=== PATIENT | male | born 1995 | race Caucasian/White ===

== ENCOUNTER 2016-06-22 19:04 | Emergency (ER) | payer MEDICAID ==
[~2016-06-22] VITALS: Ht 172.7 cm; Wt 54.5 kg
[~2016-06-22 19:04] MED LIST: ADVIL200 MG PO; AMBIEN10 MG PO; GABLOFEN0.05 MG/ML IN; LEVAQUIN 5500 MG/TA1 PO; NORCO 325 MG-7.1 TAB PO; PERCOCET 325 MG1 TA2 PO; PHENERGAN 25 TA25 MG PO
[2016-06-22 19:07] VITALS: BP 108/45; TEMP 99
[2016-06-22] MEDS ORDERED: LEXAPRO 10MG10 MG PO (19:09)
[2016-06-22 19:45] VITALS: PULSE 80
== END 2016-06-22 19:46 | disposition home or self-care (01) ==
LOC: COL.ER 19:04
DX: H02.89 Other specified disorders of eyelid (principal)

== ENCOUNTER 2016-09-19 20:49 | Emergency (ER) | payer MEDICAID ==
[~2016-09-19] VITALS: Wt 52.3 kg
[~2016-09-19 20:49] MED LIST changes: +LEXAPRO 10MG10 MG PO
[2016-09-19 20:52] VITALS: BP 136/35; TEMP 98.1
[2016-09-19] MEDS ORDERED: CEPHALEXIN500 M1 PO (21:42)
[2016-09-19 22:55] VITALS: PULSE 70
== END 2016-09-19 22:55 | disposition home or self-care (01) ==
LOC: COL.ER 20:49
DX: L97.429 Non-pressure chronic ulcer of left heel and midfoot with unspecified severity (principal); I87.2 Venous insufficiency (chronic) (peripheral); G80.0 Spastic quadriplegic cerebral palsy
CPT/HCPCS: J0690

== ENCOUNTER 2017-04-27 13:15 | Outpatient (RCR) | payer MEDICAID ==
[~2017-04-27 13:15] MED LIST changes: +CEPHALEXIN500 M1 PO
== END 2017-04-28 ==
LOC: MKS.ESL.PT
DX: G80.8 Other cerebral palsy (principal); Z99.3 Dependence on wheelchair

== ENCOUNTER 2017-07-27 13:15 | Outpatient (RCR) | payer MEDICAID | END 2017-07-30 | disposition home or self-care (01) | LOC: MKS.ESL.PT | DX: G80.9 Cerebral palsy, unspecified (principal) ==

== ENCOUNTER 2017-10-23 14:00 | Outpatient (RCR) | payer MEDICAID | END 2017-10-29 | disposition home or self-care (01) | LOC: MKS.ESL.PT | DX: G80.9 Cerebral palsy, unspecified (principal) ==

== ENCOUNTER 2018-01-25 13:15 | Outpatient (RCR) | payer MEDICAID | END 2018-01-31 | disposition home or self-care (01) | LOC: MKS.ESL.PT | DX: G80.8 Other cerebral palsy (principal) ==

== ENCOUNTER 2018-05-03 13:15 | Outpatient (RCR) | payer MEDICAID | END 2018-05-06 | disposition home or self-care (01) | LOC: MKS.ESL.PT | DX: G80.9 Cerebral palsy, unspecified (principal) ==

== ENCOUNTER → 2018-08-05 | Outpatient (RCR) | payer MEDICAID | END | disposition home or self-care (01) | LOC: MKS.ESL.PT | DX: G80.9 Cerebral palsy, unspecified (principal) ==

== ENCOUNTER 2018-11-09 13:30 | Outpatient (RCR) | payer MEDICAID | END 2018-11-14 | LOC: MKS.ESL.PT | DX: G80.9 Cerebral palsy, unspecified (principal) ==

== ENCOUNTER 2019-02-18 13:15 | Outpatient (RCR) | payer MEDICAID | END 2019-02-20 | disposition home or self-care (01) | LOC: MKS.ESL.PT | DX: G80.9 Cerebral palsy, unspecified (principal) ==

== ENCOUNTER 2019-05-20 13:15 | Outpatient (RCR) | payer MEDICAID | END 2019-05-22 | disposition home or self-care (01) | LOC: MKS.ESL.PT | DX: G80.8 Other cerebral palsy (principal) ==

== ENCOUNTER → 2020-06-04 | Outpatient (RCR) | payer MEDICAID | END | disposition home or self-care (01) | LOC: MKS.ESL.PT | DX: G80.8 Other cerebral palsy (principal) ==

== ENCOUNTER 2020-09-10 10:30 | Outpatient (RCR) | payer MEDICAID | END 2020-09-16 | disposition home or self-care (01) | LOC: MKS.ESL.PT | DX: G80.8 Other cerebral palsy (principal) ==

== ENCOUNTER 2020-12-07 13:15 | Outpatient (RCR) | payer MEDICAID | END 2020-12-16 | disposition home or self-care (01) | LOC: MKS.ESL.PT | DX: G80.8 Other cerebral palsy (principal); L89.90 Pressure ulcer of unspecified site, unspecified stage; Z99.3 Dependence on wheelchair ==

== ENCOUNTER 2021-03-15 13:15 | Outpatient (RCR) | payer MEDICAID | END 2021-03-21 | disposition home or self-care (01) | LOC: MKS.ESL.PT | DX: G80.9 Cerebral palsy, unspecified (principal); L89.90 Pressure ulcer of unspecified site, unspecified stage; M24.50 Contracture, unspecified joint ==

== ENCOUNTER 2021-05-29 14:00 | Outpatient (RCR) | payer MEDICAID | END 2021-05-31 | disposition home or self-care (01) | LOC: MKS.ESL.PT | DX: G80.9 Cerebral palsy, unspecified (principal); L89.90 Pressure ulcer of unspecified site, unspecified stage ==

== ENCOUNTER 2021-07-26 13:15 | Outpatient (RCR) | payer MEDICAID | END 2021-07-29 | disposition home or self-care (01) | LOC: MKS.ESL.PT | DX: G80.8 Other cerebral palsy (principal); L89.90 Pressure ulcer of unspecified site, unspecified stage; M24.50 Contracture, unspecified joint; R25.2 Cramp and spasm ==

== ENCOUNTER 2021-08-23 13:15 | Outpatient (RCR) | payer MEDICAID | END 2021-08-29 | disposition home or self-care (01) | LOC: MKS.ESL.PT | DX: G80.9 Cerebral palsy, unspecified (principal); L89.90 Pressure ulcer of unspecified site, unspecified stage ==

== ENCOUNTER 2021-09-27 13:15 | Outpatient (RCR) | payer MEDICAID | END 2021-09-28 | disposition home or self-care (01) | LOC: MKS.ESL.PT | DX: G80.8 Other cerebral palsy (principal); L89.90 Pressure ulcer of unspecified site, unspecified stage ==

== ENCOUNTER 2021-10-25 13:15 | Outpatient (RCR) | payer MEDICAID | END 2021-10-29 | disposition home or self-care (01) | LOC: MKS.ESL.PT | DX: G80.9 Cerebral palsy, unspecified (principal); L89.90 Pressure ulcer of unspecified site, unspecified stage; M24.50 Contracture, unspecified joint ==

== ENCOUNTER 2021-11-22 13:15 | Outpatient (RCR) | payer MEDICAID | END 2021-11-28 | disposition still patient (30) | LOC: WSPT | DX: G80.9 Cerebral palsy, unspecified (principal); L89.90 Pressure ulcer of unspecified site, unspecified stage ==

== ENCOUNTER 2021-12-20 13:15 | Outpatient (RCR) | payer MEDICAID | END 2021-12-29 | disposition home or self-care (01) | LOC: WSPT | DX: M62.40 Contracture of muscle, unspecified site (principal); L89.90 Pressure ulcer of unspecified site, unspecified stage; G80.9 Cerebral palsy, unspecified ==

== ENCOUNTER 2022-01-24 13:15 | Outpatient (RCR) | payer MEDICAID | END 2022-01-29 | disposition home or self-care (01) | LOC: WSPT | DX: G80.9 Cerebral palsy, unspecified (principal); L89.90 Pressure ulcer of unspecified site, unspecified stage; M24.50 Contracture, unspecified joint ==

== ENCOUNTER 2022-03-28 13:15 | Outpatient (RCR) | payer MEDICAID | END 2022-03-31 | disposition home or self-care (01) | LOC: WSPT | DX: R25.2 Cramp and spasm (principal); G80.8 Other cerebral palsy; L89.90 Pressure ulcer of unspecified site, unspecified stage ==

== ENCOUNTER 2022-06-20 13:15 | Outpatient (RCR) | payer MEDICAID | END 2022-07-01 | disposition home or self-care (01) | LOC: WSPT | DX: M24.50 Contracture, unspecified joint (principal); L89.90 Pressure ulcer of unspecified site, unspecified stage; G80.9 Cerebral palsy, unspecified; R25.2 Cramp and spasm ==

== ENCOUNTER → 2022-08-29 | Outpatient (RCR) | payer MEDICAID | END | disposition home or self-care (01) | LOC: WSPT | DX: L89.90 Pressure ulcer of unspecified site, unspecified stage (principal); G80.9 Cerebral palsy, unspecified; M24.50 Contracture, unspecified joint ==

== ENCOUNTER 2022-09-26 13:15 | Outpatient (RCR) | payer MEDICAID | END 2022-09-28 | disposition home or self-care (01) | LOC: WSPT | DX: G80.9 Cerebral palsy, unspecified (principal); L89.90 Pressure ulcer of unspecified site, unspecified stage; M24.50 Contracture, unspecified joint ==

== ENCOUNTER 2023-01-23 13:15 | Outpatient (RCR) | payer MEDICAID | END 2023-01-29 | disposition home or self-care (01) | LOC: WSPT | DX: G80.8 Other cerebral palsy (principal); R25.2 Cramp and spasm ==

== ENCOUNTER 2023-02-17 13:00 | Outpatient (RCR) | payer MEDICAID ==
[~2023-02-17 13:00] MED LIST changes: +AMBIEN 10MG10 MG PO; -AMBIEN10 MG PO; -LEXAPRO 10MG10 MG PO; +LEXAPRO20 MG PO
[2023-02-19] MEDS ORDERED: VALIUM 5MG T5 MG/TAB PO (14:04)
[2023-02-19] MEDS ORDERED: BACLOFEN PUMP (14:11)
[2023-02-19] MEDS ORDERED: ADVIL200 MG PO (14:12)
[2023-02-19] MEDS ORDERED: TYLENOL 325MG325 MG PO (14:13)
[2023-02-19] MEDS ORDERED: NIGHT TIME COL355 M1 PO (14:14)
[2023-02-19] MEDS ORDERED: BOTOX 100100 U/VIAL IM (14:17)
[2023-02-25] MEDS ORDERED: ZITHROMAX500 M2 PO (11:07)
[2023-02-25] MEDS ORDERED: AMOXICILLIN 8751 TAB PO (11:10)
[2023-02-25] MEDS ORDERED: PROBIOTIC ACID1 EAC3 PO (11:11)
[2023-02-25] MEDS ORDERED: OXYGEN NASAL.CANN (12:24)
== END 2023-02-28 | disposition home or self-care (01) ==
LOC: MKS.ESL.PT
DX: G80.8 Other cerebral palsy (principal); R25.2 Cramp and spasm; L89.90 Pressure ulcer of unspecified site, unspecified stage

== ENCOUNTER 2023-05-19 13:00 | Outpatient (RCR) | payer MEDICAID ==
[~2023-05-19 13:00] MED LIST changes: +AMOXICILLIN 8751 TAB PO; +BACLOFEN PUMP; +BACTRIM DS 8001 TAB PO; +BOTOX 100100 U/VIAL IM; +NIGHT TIME COL355 M1 PO; +OXYGEN NASAL.CANN; +PROBIOTIC ACID1 EAC3 PO; +TRULANCE3 MG PO; +TYLENOL 325MG325 MG PO; +VALIUM 5MG T5 MG/TAB PO; +ZITHROMAX500 M2 PO
== END 2023-05-31 | disposition home or self-care (01) ==
LOC: MKS.ESL.PT
DX: G80.8 Other cerebral palsy (principal); R25.2 Cramp and spasm

== ENCOUNTER 2023-06-30 13:00 | Outpatient (RCR) | payer MEDICAID | END 2023-07-01 | disposition home or self-care (01) | LOC: MKS.ESL.PT | DX: G80.8 Other cerebral palsy (principal); R53.1 Weakness; L89.90 Pressure ulcer of unspecified site, unspecified stage ==

== ENCOUNTER 2023-08-26 13:45 | Outpatient (RCR) | payer MEDICAID | END 2023-08-30 | disposition home or self-care (01) | LOC: MKS.ESL.OT | DX: G80.9 Cerebral palsy, unspecified (principal); R53.1 Weakness ==

== ENCOUNTER 2023-10-27 13:00 | Outpatient (RCR) | payer MEDICAID | END 2023-10-30 | disposition home or self-care (01) | LOC: MKS.ESL.PT | DX: G80.8 Other cerebral palsy (principal); L89.90 Pressure ulcer of unspecified site, unspecified stage ==

== ENCOUNTER 2023-11-24 13:00 | Outpatient (RCR) | payer MEDICAID | END 2023-11-29 | disposition home or self-care (01) | LOC: MKS.ESL.PT | DX: G80.9 Cerebral palsy, unspecified (principal) ==

== ENCOUNTER 2023-12-29 13:00 | Outpatient (RCR) | payer MEDICAID | END 2023-12-30 | disposition home or self-care (01) | LOC: MKS.ESL.PT | DX: G80.9 Cerebral palsy, unspecified (principal) ==

== ENCOUNTER 2024-01-26 13:00 | Outpatient (RCR) | payer MEDICAID | END 2024-01-30 | disposition home or self-care (01) | LOC: MKS.ESL.PT | DX: G80.9 Cerebral palsy, unspecified (principal) ==

== ENCOUNTER 2024-02-23 13:00 | Outpatient (RCR) | payer MEDICAID | END 2024-02-29 | disposition home or self-care (01) | LOC: MKS.ESL.PT | DX: G80.9 Cerebral palsy, unspecified (principal) ==